=== PATIENT | male | born 1950 | race Caucasian/White ===

== ENCOUNTER 2023-06-23 06:06 | Day surgery (SDC) | payer OTHER, SELFPAY ==
[2023-06-23] VITALS (11 sets, daily range): BP systolic 119–148; BP diastolic 68–92; BMI 29.9
[2023-06-23] MEDS: NORMOSOL-R 1000 IV (06:57)
[2023-06-23] MEDS: TYLENOL 1000 MG PO (07:08)
--- NOTE | 2023-06-23 09:47 | W.SUR.PREOP ---
Pre-Operative Surgical Note
-
I have examined this patient prior to the performance of the scheduled procedure.
The patient's condition is unchanged from the time of the current History and
Physical and the patient is able to undergo the scheduled procedure.
--- NOTE | 2023-06-23 09:47 | W.IMMPOSTOP ---
Surgical Immed Post Op Note
-
Primary Surgeon: Lyle Segura MD
Assisting Surgeon: None
Pre-op Diagnosis: Right inguinal hernia, reducible, primary
Post-op Diagnosis: Same
Procedure Performed: Robotic right inguinal hernia repair with mesh
Anesthesia Type: General
Specimen / Cultures: None
Estimated Blood Loss: 7 cc
Complications: None
Operative Findings: Pantaloon hernia with moderate-sized direct defect containing fat as well as a small indirect inguinal hernia containing a small cord lipoma. The direct defect was imbricated in the floor reconstructed with a Bard large right 3D
max mid weight mesh. The cord lipoma and part of the fat in the direct inguinal defect were resected and removed.
POST OP PLAN:
Will discharge home after voiding.
--- NOTE | 2023-06-23 09:51 | OR.RPT ---
Operative Report
Operative Report
Patient Name: Allan Paiz
: 1950
Date of Operation: 06/23/2023
Preoperative Diagnosis: Reducible Inguinal hernia, right
Postoperative Diagnosis: Same
Procedure(s):
Robotic Inguinal Hernia Repair with mesh, (RAFAELA approach)
Surgeon(s):
Dr. Segura
Hand Roller Engraver(s):
FCO Trevino
JENNIFER Trevino
Anesthesia: General
Estimated Blood Loss: 7 cc
Urine Output: None
Drains/Lines/Implants: Large 3D Max Bard mid weight mesh
Specimens: None
Indication for surgery: The patient has a history of groin pain and noted on exam to have a right inguinal Hernia. Following review of therapeutic options they has elected to undergo a minimally invasive repair.
Findings at the time of surgery:
Pantaloon hernia with moderate-sized direct defect containing fat as well as a small indirect inguinal hernia containing a small cord lipoma. The direct defect was imbricated in the floor reconstructed with a Bard large right 3D max mid weight
mesh. The cord lipoma and part of the fat in the direct inguinal defect were resected and removed. His previous open left inguinal hernia repair was noted, no obvious defect. Medial mesh plug encountered during our medial dissection just above
the bladder.
Details of the operation:
The patient was brought to the Operating Room and placed in the supine position with the arms tucked. IV antibiotics were infused and Venodyne stockings placed. Following uneventful induction of general endotracheal anesthesia, an orogastric tube
were placed. The abdomen was prepped and draped in the usual sterile fashion. The abdomen was entered using a Veress technique which required 1 pass, pneumoperitoneum to 15 mmHg was obtained without difficulty. A 8mm trochar was passed through the
abdominal wall roughly 15 cm cephalad to the inguinal canal. We then confirmed that no inadvertent injury was made while passing the trocar or Veress needle. We then placed two additional 8 mm ports in the left upper and right upper quadrants. We
then docked the robot with a Prograsper in the left hand port and monopolar scissors in the right. The left indirect space was difficult to visualize given the overlying colon however no obvious defect was appreciated. An indirect and direct
defect were appreciated on the right side. We then began by creating a flap at the level of the ASIS laterally working our way medially to the medial umbilical fold. Staying onto the peritoneum we were able to circumferentially dissect around the
hernia sac and and peel it off of the underlying spermatic cord and testicular vessels, taking care to preserve them. Medially we identified the midline pubis as well as Best's ligament and ensured to dissect 2 cm below the pubic rim over the
bladder. A mesh plug was encountered just above the bladder presumably, from his prior open left hernia repair. There was a significant amount of fat in the direct hernia space that appeared to be coming from both the inferior epigastric fat pad
as well as a from over the bladder. This took some time to separate and find the plane between these 2 areas. Part of the fat from the inferior epigastrics was resected. After exposure of the entire myopectineal orifice we identified and reduced:
A small sized indirect inguinal hernia, moderate-sized direct inguinal hernia, no femoral hernia, and a small cord lipoma, which was also removed
We then fixated a large 3D max mesh with a 2-0 Vicryl stitch at coopers medially and superior laterally. The flap was then closed with a running 2-0 barbed monocryl suture ensuring that the tail was cut flush with the medial fat pad so that no
barbs were exposed. During the closure of the flap an Angiocath was inserted and 20 cc of quarter percent Marcaine was instilled. The area in the flap cavity was then evacuated of air confirming that the mesh was flush and there were no folds. A
small rent in the peritoneum was noted and closed with 2-0 Vicryl. All needles and instruments were then removed and the robot was undocked. The abdomen was then desufflated, and pneumoperitoneum evacuated. All skin sites were then closed with 4-0
Monocryl followed by Dermabond. Counts were correct and overall, the patient tolerated the procedure well and was taken to the Recovery Room postoperatively in stable condition.
I was the attending physician and performed the procedure with assistance of the COMMUNITY REPRESENTATIVE and PA above. I was present for all portions of the case
Lyle Segura MD
[2023-06-23] MEDS: ZOFRAN 4 MG IV (10:23)
[2023-06-23] MEDS: SUBLIMAZE 25 MCG IV ×2 (10:31→10:49)
== END 2023-06-23 12:32 | disposition home or self-care (01) ==
LOC: SDS 06:06
PROVIDERS: ATTENDING PHYSICIAN Surgery
DX: K40.91 Unilateral inguinal hernia, without obstruction or gangrene, recurrent (principal); D17.6 Benign lipomatous neoplasm of spermatic cord
CPT/HCPCS: 49651; C1781

== ENCOUNTER → 2024-08-08 11:36 | Outpatient (REF) | payer OTHER, SELFPAY ==
[2024-08-08 13:02] LABS: Blood Urea Nitrogen 15 mg/dl (9-20); Calcium 9.3 mg/dl (8.4-10.2); Carbon Dioxide 26 mmol/L (22-30); Chloride 108 mmol/L (98-107); Glucose 92 mg/dl (70-99); Potassium 4.2 mmol/L (3.5-5.1); Sodium 143 mmol/L (135-145); eGFR > 60.00
== END ==
LOC: REG 11:36
PROVIDERS: ATTENDING PHYSICIAN Registered Nurse; FAMILY PHYSICIAN Internal Medicine
DX: I71.40 Abdominal aortic aneurysm, without rupture, unspecified (principal)
CPT/HCPCS: 36415; 80048

== ENCOUNTER → 2024-08-13 12:15 | Outpatient (REF) | payer OTHER, SELFPAY | LOC: RAD 12:15 | PROVIDERS: ATTENDING PHYSICIAN Registered Nurse; FAMILY PHYSICIAN Internal Medicine | DX: I71.40 Abdominal aortic aneurysm, without rupture, unspecified (principal) | CPT/HCPCS: 74174; Q9967 ==

== ENCOUNTER 2024-10-19 16:09 | Emergency (ER) | payer OTHER, SELFPAY ==
[2024-10-19 16:13] VITALS: BP 123/64
[2024-10-19 16:49] LABS: Urine Character Clear (Clear)
[2024-10-19 16:55] LABS: Urine Red Blood Cell 0-2 /HPF (0-2); Urine Squamous Cell 0-2 /LPF (Few); Urine White Cell 0-2 /HPF (0-5)
[2024-10-19 17:26] LABS: ALT (SGPT) 89 U/L (0-50); AST (SGOT) 98 U/L (17-59); Albumin 4.2 g/dl (3.5-5.0); Alkaline Phosphatase 48 U/L (38-126); Blood Urea Nitrogen 13 mg/dl (9-20); Calcium 8.7 mg/dl (8.4-10.2); Carbon Dioxide 21 mmol/L (22-30); Chloride 110 mmol/L (98-107); Glucose 116 mg/dl (70-99); Potassium 3.7 mmol/L (3.5-5.1); Sodium 135 mmol/L (135-145); Total Protein 7.2 g/dl (6.3-8.2); eGFR > 60.00
[2024-10-19 17:31] LABS: COVID-19 Antigen Negative (Negative)
[2024-10-19 17:32] LABS: Hematocrit 34.3 % (39.0-52.0); Hemoglobin 11.9 g/dL (13.0-18.0); Mean Corp Hgb Conc. 34.7 g/dL (33.0-37.0); Mean Corpuscular Volume 92.7 fL (80.0-94.0); Nucleated Red Blood Cells % 0 % (-); Platelet Count 64 10^3/uL (130-400); Red Cell Dist. Width 13.1 % (11.5-14.5)
[2024-10-19 20:26] VITALS: BMI 30.5
--- NOTE | 2024-10-19 21:41 | ED.GENMED ---
History of Present Illness
General
Chief Complaint: Breathing Problem
Source: patient and spouse
Time Seen by Provider: 10/19/24 19:41
History of Present Illness
History of Present Illness:
Note:
CHIEF COMPLAINT(S)
Shortness of breath, fatigue, fever, and decreased appetite.
HISTORY OF PRESENT ILLNESS
The patient is a 74-year-old male who presents with shortness of breath, fatigue, fever, and decreased appetite. The symptoms started on Tuesday while he was at a [employer]. The patient experienced fever and dehydration, possibly due to the
heat. On Tuesday, he continued to have fever and on , developed significant shortness of breath, extreme fatigue, and heavy legs. He reports being able to walk only short distances before becoming out of breath, stating, 'I had to keep
taking breaks walking even short distances.' He also reports a lack of appetite since with his last significant meal being at noon on that day. He experienced chills and shivering during the night after taking acetaminophen and later,
ibuprofen. Today, he consumed a small bowl of cereal in the morning but continues to feel fatigued and short of breath, noting difficulty walking 100 yards. The patient drove himself home, about a two-hour drive, and [facility] arrival. The nurse practitioner there suggested a chest X-ray due to concerns for possible undetected pneumonia, especially after a urine test indicated the presence of blood. The patient also reports nausea upon the mere thought
of food but denies any rash, headache, neck pain, or gastrointestinal symptoms such as abdominal pain or diarrhea. He denies any known insect or tick bites and states that no one else at the camp or home appeared to be ill.
ADDITIONAL HISTORY OBTAINED FROM SOURCES OTHER THAN THE PATIENT
The nurse practitioner at the [facility] expressed concern about possible pneumonia and found blood in the patients urine using a dipstick test.
PLAN
- Obtain a chest X-ray to evaluate the cause of shortness of breath and possible pneumonia.
- Review the urine sample results.
- Send West Nile and Lyme disease testing, with results pending.
- Monitor the patients condition and follow up on test results.
- Reassess based on the findings of the tests and imaging.
DIFFERENTIAL DIAGNOSIS
The Differential Diagnosis includes, in no particular order and is not limited to:
1. Community-acquired pneumonia
2. Viral infection (such as West Nile virus)
3. Dehydration
4. Anemia
5. Urinary tract infection
6. Heart failure
7. Chronic obstructive pulmonary disease exacerbation
8. Asthma exacerbation
9. Pulmonary embolism
10. Hypothyroidism
Disposition:
SUMMARY OF ENCOUNTER
The patient, a 74-year-old male, was evaluated in the emergency department for symptoms of shortness of breath, fatigue, fever, and decreased appetite. He experienced these symptoms since Tuesday while [place] [employer], with progressively
worsening fatigue and shortness of breath, requiring breaks even during short walks. He also reported fever, dehydration, chills, and nausea with a lack of appetite. Initial evaluation showed leukopenia, neutropenia, mildly elevated liver enzymes
(AST at 98 and ALT at 89), and microscopic blood and albumin in the urine. Despite these findings, the patient denied other significant symptoms and felt well while resting. A chest X-ray showed no signs of pneumonia, and his vital signs were stable
with a heart rate of 68, normal blood pressure, and normal oxygen levels. Given these findings, there was no indication for hospital admission, and it was determined he could safely go home with follow-up instructions.
ASSESSMENT
The differential diagnosis includes community-acquired pneumonia, viral infection (such as West Nile virus), dehydration, anemia, urinary tract infection, heart failure, chronic obstructive pulmonary disease exacerbation, asthma exacerbation,
pulmonary embolism, and hypothyroidism. Current findings raise a suspicion of a viral infection or another non-severe condition given negative imaging for pneumonia and stable vital signs.
PLAN
The plan is to closely monitor the patients condition with pending studies of West Nile virus and Lyme disease testing. Addionally, consider adding an babesiosis smear and assessments for [place] spotted fever and anaplasma. The patient should
follow up with his primary care physician (PCP) for continued evaluation and management.
INDEPENDENT REVIEW OF LABS AND INTERPRETATION OF TESTS
My independent review of the CBC shows leukopenia at 1.5 and neutropenia at 0.8. My independent review of liver function tests indicates mildly elevated AST at 98 and ALT at 89. My review of the urinalysis shows microscopic blood and albumin but no
signs of infection. My independent interpretation of the chest X-ray reveals no signs of pneumonia.
PATIENT EDUCATION AND COUNSELING
The patient was advised about the findings and the importance of close follow-up with his primary care provider. Return warnings were reviewed, including immediate return to the ED if symptoms worsen.
MEDICATION RECONCILIATION
Pending labs and close monitoring have been advised. No medications were administered during this visit, and prescription options will be considered following further evaluation by his PCP.
MEDICAL DECISION MAKING
-Number and Complexity of Problems Addressed: Chronic conditions affecting care include concerns of dehydration, potential viral infection (such as West Nile virus), and evaluation for possible pneumonia. Differential Diagnosis includes
community-acquired pneumonia, viral infection, dehydration, anemia, urinary tract infection, heart failure, COPD exacerbation, asthma exacerbation, pulmonary embolism, and hypothyroidism.
-Data:
Category 1
Tests and documents reviewed include CBC, liver function tests, urinalysis, and chest X-ray.
I obtained information from the nurse practitioner at the [facility] who provided additional context regarding his symptoms and initial testing.
-Risk:
Prescription medication management was not needed, though pending diagnostic testing with risks, such as laboratory tests for infectious disease panels and possible further imaging, were considered but not immediately necessary for acute
intervention.
DIAGNOSIS
1. Suspected Viral Infection (Uncertain Etiology) - ICD-10: B34.9
2. Mild Liver Enzyme Elevation - ICD-10: R74.0
3. Leukopenia - ICD-10: D72.819
Past History
Past History
ED Past Medical History: None
ED Past Surgical History: None
Social History
Tobacco: Non-smoker
Drug: None
Personal: Single
Living: with family
Phy Exam
Physical Exam
Physical Exam:
.
Scores
Heart Failure Risk
Heart Failure Risk Score: Not Applicable
Course
Orders/Labs/Results
Orders:
Orders
10/19/24 16:24
Urinalysis Reflex To Culture Urgent
Date Specimen was Collected: 10/19/24
Time Specimen was Collected: 16:17
Urine Microscopic Reflex Cult Urgent
10/19/24 16:31
COVID-19 Antigen Urgent
Source: Nasal Swab
Influenza A+B Rapid Molecular Urgent
SARAH Source: Nasal Swab
Specimen Description:
10/19/24 16:38
Complete Blood Count/With Diff Urgent
Comprehensive Metabolic Panel Urgent
Lyme Progressive Urgent
West Nile Virus, IgM, Serum [S] Urgent
10/19/24 20:18
CR Chest - 2 Views Urgent
Comment:
Reason For Exam: fever, sob
10/19/24 21:52
Ibuprofen [Motrin] 600 mg PO NOW STA
10/19/24 22:09
Ehrlichia/Anaplasma by PCR [S] Urgent
[facility] Spotted Fever IgG&IgM [S] Urgent
Babesia Smear [Blood Parasites] Urgent
SARAH Source: Blood/Venous
Specimen Description:
Blood Culture Q30M
SARAH Source: Blood/Venous
Specimen Description:
Blood Culture Q30M
SARAH Source: Blood/Venous
Specimen Description:
Abnormal Lab Results
10/19/24 10/19/24
16:24 16:38
WBC 1.5 L* 10^3/uL
(4.8-10.8)
RBC 3.70 L 10^6/uL
(4.70-6.10)
Hgb 11.9 L g/dL
(13.0-18.0)
Hct 34.3 L %
(39.0-52.0)
MCH 32.2 H pg
(27.0-31.0)
Plt Count 64 L 10^3/uL
(130-400)
MPV 11.8 H fL
(7.4-10.4)
Abs Immat Gran (auto) 0.1 H 10^3/uL
(0-0.05)
Absolute Neuts (auto) 0.8 L* 10^3/uL
(1.4-6.5)
Absolute Lymphs (auto) 0.4 L 10^3/uL
(1.2-3.4)
Immature Gran % 3.4 H %
(0-0.5)
Monocytes % 19.9 H %
(1.7-9.3)
Chloride 110 H mmol/L
(98-107)
Carbon Dioxide 21 L mmol/L
(22-30)
Glucose 116 H mg/dl
(70-99)
AST 98 H U/L
(17-59)
ALT 89 H U/L
(0-50)
Ur Occult Blood Reflex 4+ A
(Negative)
Urine Bacteria (Reflex) Few A
(Negative)
Urine Albumin (Reflex) 2+ A
(Neg - Trace)
10/19/24 16:38
10/19/24 16:38
Vital Signs
Initial and Last Documented VS:
Initial Vital Signs
Temp Pulse Resp BP Pulse Ox
99.4 F 59 18 123/64 96
10/19/24 16:13 10/19/24 16:13 10/19/24 16:13 10/19/24 16:13 10/19/24 16:13
Last Documented Vital Signs
Temp Pulse Resp BP Pulse Ox
99.8 F 68 19 123/64 96
10/19/24 22:17 10/19/24 20:15 10/19/24 20:15 10/19/24 16:13 10/19/24 21:41
*Pulse Oximetry
SaO2: 96
Oxygen Mode of Delivery: Room air
Patient hypoxic: no
*Critical Care Note
Total Time (30-74mins, 75-104mins- exclusive of procedures): Not Applicable
ED Attending Note
-
Portions of this chart may have been created with voice recognition software.� Occasional wrong word or��sound alike� substitutions may have occurred due to the inherent limitations of voice recognition software.
Discharge Plan
Departure
Patient Disposition: Home (Routine Discharge)
Date of Disposition: 10/19/24
Time of Disposition: 21:41
Patient with high blood pressure during this ER visit?: No
Discharge Problem:
Fever, Fatigue
Instructions: Fatigue, Fever in adults - Discharge instructions
Prescriptions:
No Action
coenzyme Q10 [CoQ-10] 100 MG capsule
100 mg PO DAILY
losartan 50 MG tablet
50 mg PO DAILY
pantoprazole 40 MG tablet,delayed release (DR/EC)
40 mg PO DAILY
metoprolol succinate 25 MG tablet extended release 24 hr
25 mg PO DAILY Qty: 1 10RF
tamsulosin [Flomax] 0.4 mg capsule
0.4 mg PO DAILY Qty: 30 0RF
rosuvastatin [Crestor] 20 mg Tablet
20 mg PO QPM
Align (B.infantis) 4 mg Capsule
4 mg PO HS
psyllium husk
1,500 mg PO DAILY
epinephrine
0.3 mg SC PRN (Reason: bee stings)
acetaminophen [acetaminophen] 325 mg tablet
650 mg PO Q6HPRN PRN (Reason: mild pain) Qty: 14 0RF
ibuprofen 600 mg tablet
600 mg PO Q6H PRN (Reason: pain) Qty: 14 0RF
Referrals:
Slime Soto MD [Family Provider, Internal Medicine]
Activity Restrictions/Additional Instructions:
Please be sure to see your doctor in the next 3 to 5 days for follow-up and reevaluation. Further testing is pending and you will be notified if any tests are abnormal. Return immediately for difficulty breathing, changes in mentation, rash of any
kind, vomiting, abdominal pain or any other concerns.
Interventions
Interventions:
*Risk Screen - Suicide Last Done: 10/19/24 16:16
*General Assessment Last Done: 10/19/24 20:30
*Neglect/Abuse Screening Last Done: 10/19/24 16:16
*ED- Fall Risk Assessment Last Done: 10/19/24 20:30
*ED COVID-19 Vaccine History Last Done: 10/19/24 20:30
*Nursing Disposition Last Done: 10/19/24 22:35
ED- Cardiac Assessment Last Done: 10/19/24 20:30
ED- Pulmonary Assessment Last Done: 10/19/24 20:30
Discharge Date and Time
Discharge Date/Time: 10/19/24 22:35
Print Language: ALBANIAN
[2024-10-19] MEDS: MOTRIN 600 MG PO (21:57)
[2024-10-23 12:38] LABS: RMSF IgG Antibodies <1:64 (<1:64); RMSF IgM Antibodies <1:64 (<1:64)
[2024-10-24 09:06] LABS: West Nile Virus, IgM, Serum 0.00 IV (<=0.89)
== END 2024-10-19 22:35 | disposition home or self-care (01) ==
LOC: EMR 16:09
PROVIDERS: Emergency Medicine; EMERGENCY PHYSICIAN Emergency Medicine; FAMILY PHYSICIAN Internal Medicine
DX: R50.9 Fever, unspecified (principal); R53.83 Other fatigue; R63.8 Other symptoms and signs concerning food and fluid intake; D72.819 Decreased white blood cell count, unspecified
CPT/HCPCS: 99284; 71046; 80053; 81003; 81015; 85025; 86618; 86757; 86788; 87015; 87040; 87207; 87468; 87484; 87502; 87798; 87811